=== PATIENT | female | born 1980 | race African-American/Black ===

== ENCOUNTER 2016-03-24 10:09 | Emergency (ER) | payer OTHER ==
[~2016-03-24] VITALS: Ht 170.2 cm; Wt 56.7 kg
[2016-03-24 10:15] VITALS: BP 105/63
--- NOTE | 2016-03-24 10:41 | Emergency Room Report ---
History of Present Illness General Chief Complaint: Female Urogenital Problems Source: Patient Present Illness HPI Patient reports that since June she has had a mild vaginal discharge However over the past 2 days patient experienced increased dysuria or frequency questionable evidence of Blood with a urine Denies any fevers or chills Denies any chest pain or shortness of breath denies any pelvic pain Denies any fall or trauma Patient is sexually active Allergies: Coded Allergies: No Known Allergies (Unverified , 03/24/16) Patient History Past Medical History: see triage record Pertinent Family History: none Last Menstrual Period: 03/05/16 Now: No Reviewed Nursing Documentation: PMH: Agreed, PSxH: Agreed Nursing Documentation-PMH Past Medical History: No History, Except For Hx Asthma: Yes Review of Systems All Other Systems: negative except mentioned in HPI Physical Exam Vital Signs Date Time Temp Pulse Resp B/P Pulse Ox O2 Delivery O2 Flow Rate FiO2 03/24/16 10:15 97.7 66 16 105/63 97 Room Air Sp02 EP Interpretation: reviewed, normal General Appearance: well appearing, no apparent distress Head: normocephalic, atraumatic Eyes: bilateral eye EOMI, bilateral eye PERRL ENT: hearing grossly normal, normal pharynx, TMs + canals normal, uvula midline Neck: full range of motion, supple, no meningismus, no bony tend Respiratory: lungs clear, normal breath sounds, no rhonchi, no respiratory distress, no retraction, no accessory muscle use Cardiovascular #1: normal peripheral pulses, regular rate, rhythm, no edema, no gallop, no JVD, no murmur Gastrointestinal: normal bowel sounds, non tender, soft, no mass, no organomegaly, non-distended, no guarding, no hernia, no pulsatile mass, no rebound Genitourinary: no CVA tenderness Musculoskeletal: normal inspection Neurologic: oriented x3, responsive, [employer] III-XII nml as tested, motor strength/ tone normal, sensory intact Psychiatric: mood/affect normal Skin: normal color, no rash, warm/dry, palpation normal Lymphatic: normal inspection, no adenopathy Medical Decision Making Diagnostic Impression: Primary Impression: Vaginitis ER Course Patient's urine sample showed some mild evidence of blood Multiple differentials are considered including but not limited to, PID, toxic syndrome, urethritis, STDs Patient has a fairly chronic component to her presentation she requires appropriate gynecological specialty consultation and evaluation at this time the patient was initially treated symptomatically And stable for close outpatient followup Labs Test 03/24/16 10:23 Urine Color Yellow Urine Appearance Cloudy Urine pH 8 (4.5-8.0) Urine Specific [place] 1.015 (1.005-1.035) Urine Protein 2+ (NEGATIVE) Urine Glucose (UA) Negative (NEGATIVE) Urine Ketones Negative (NEGATIVE) Urine Occult Blood 5+ (NEGATIVE) Urine Nitrite Negative (NEGATIVE) Urine Bilirubin Negative (NEGATIVE) Urine Urobilinogen Normal MG/DL (0.0-1.0) Urine Leukocyte Esterase 1+ (NEGATIVE) Urine RBC 5-10 /HPF (0 - 2) Urine WBC 2-4 /HPF (0 - 2) Urine Squamous Epithelial Cells Few /LPF (NONE/OCC) Urine Bacteria Occasional /HPF (NONE) Urine HCG, Qualitative Negative Last Vital Signs Date Time Temp Pulse Resp B/P Pulse Ox O2 Delivery O2 Flow Rate FiO2 03/24/16 10:15 97.7 66 16 105/63 97 Room Air Status: improved Disposition: HOME, SELF-CARE Condition: Improved Scripts Metronidazole* (FLAGYL*) 500 Mg Tablet 500 MG ORAL BID, #14 TAB 0 Refills Prov: ELIN BARRON D.O. 03/24/16 Referrals: [facility],REFERRING (PCP) Additional Instructions: Patient is provided with the discharge instructions notified to follow up with primary doctor in the next 2-3 days otherwise return to the er with any worsening symptoms. ELIN BARRON D.O. Mar 24, 2016 10:41
[2016-03-24 10:48] LABS: APPEARANCE,URINE CLOUDY; KETONES,URINE NEGATIVE (NEGATIVE); LEUKOCYTE ESTERASE ,URINE 1+ (NEGATIVE); NITRITE,URINE NEGATIVE (NEGATIVE); PH,URINE 8 (4.5-8.0); PROTEIN,URINE 2+ (NEGATIVE); UROBILINOGEN,URINE NORMAL MG/DL (0.0-1.0)
[2016-03-24 10:51] LABS: BACTERIA,URINE OCCASIONAL /HPF; SQUAMOUS EPITHELIAL CELL,UR FEW /LPF (NONE/OCC)
[2016-03-24] MEDS ORDERED: Lidocaine 1% MPF 10mg/ml 5ml ONE (11:42)
[2016-03-24] MEDS ORDERED: FLAGYL500 MG ORAL (11:42)
[2016-03-24] MEDS ORDERED: Azithromycin 250mg tab ORAL ONE (11:45)
[2016-03-24 11:54] VITALS: BP 104/64
== END 2016-03-24 11:56 | disposition home or self-care (01) ==
LOC: EMR 10:36
DX: R30.0 Dysuria (principal)
CPT/HCPCS: 81003; 81025; 96372; 99283; J0696; Q0144